=== PATIENT | male | born 1970 | race Caucasian/White ===

== ENCOUNTER 2020-04-18 15:48 | Outpatient (CLI) | payer BC | END 2020-04-18 23:59 | disposition home or self-care (01) | LOC: CFH 15:48 | PROVIDERS: ATTEND Internal Medicine Cardiovascular Disease | DX: I36.1 Nonrheumatic tricuspid (valve) insufficiency (principal); E78.5 Hyperlipidemia, unspecified; I10 Essential (primary) hypertension | CPT/HCPCS: 93306; 93356 ==